=== PATIENT | female | born 2000 | race Caucasian/White ===

== ENCOUNTER 2024-02-08 01:15 | Emergency (ER) | payer OTHER ==
[~2024-02-08] VITALS: Ht 167.6 cm; Wt 90.7 kg
[2024-02-08 01:39] VITALS: BP 123/62; TEMP 98.7; O2SAT 98
[2024-02-08] MEDS ORDERED: CARB15DR12 EACH EAR (01:45)
== END 2024-02-08 01:52 | disposition home or self-care (01) ==
LOC: ER 01:28
DX: H61.23 Impacted cerumen, bilateral (principal)